=== PATIENT | male | born 1955 | race Caucasian/White ===

== ENCOUNTER → 2024-02-12 08:21 | Outpatient (REF) | payer BC, SELFPAY ==
[2024-02-12 09:15] LABS: % Basophils 1.3 % (0-2); % Eosinophils 2.9 % (0-6); % Immature Granulocytes 0.4 % (0-0.5); % Lymphocytes 41.3 % (20.5-51.1); % Monocytes 15.7 % (1.7-9.3); % Neutrophils 38.4 % (42.2-75.2); Absolute Basophils 0.1 10^3/uL (0-0.2); Absolute Eosinophils 0.2 10^3/uL (0-0.7); Absolute Lymphocytes 2.3 10^3/uL (1.2-3.4); Absolute Monocytes 0.9 10^3/uL (0.1-0.6); Absolute Neutrophils 2.1 10^3/uL (1.4-6.5); Hematocrit 47.1 % (39.0-52.0); Hemoglobin 17.1 g/dL (13.0-18.0); Mean Corp Hgb Conc. 36.3 g/dL (33.0-37.0); Mean Corpuscular Hgb 32.1 pg (27.0-31.0); Mean Corpuscular Volume 88.5 fL (80.0-94.0); Mean Platelet Volume 11.6 fL (7.4-10.4); Nucleated Red Blood Cells % 0 % (-); Platelet Count 233 10^3/uL (130-400); Red Blood Cell Count 5.32 10^6/uL (4.70-6.10); Red Cell Dist. Width 13.2 % (11.5-14.5); White Blood Cell Count 5.5 10^3/uL (4.8-10.8)
[2024-02-12 09:26] LABS: Urine Albumin Negative (Neg - Trace); Urine Bilirubin Negative (Negative); Urine Character Clear (Clear); Urine Color Yellow; Urine Glucose Negative (Negative); Urine Ketone Negative (Negative); Urine Leukocyte Negative (Negative); Urine Nitrite Negative (Negative); Urine Occult Blood Negative (Negative); Urine Urobilinogen Negative (Neg - 1+)
[2024-02-12 09:50] LABS: ALT (SGPT) 44 U/L (0-50); AST (SGOT) 35 U/L (17-59); Albumin 4.5 g/dl (3.5-5.0); Alkaline Phosphatase 67 U/L (38-126); Blood Urea Nitrogen 26 mg/dl (9-20); Carbon Dioxide 23 mmol/L (22-30); Chloride 104 mmol/L (98-107); Glucose 126 mg/dl (70-99); HDL Cholesterol 47 mg/dl; LDL Cholesterol, Calculated 77 mg/dl; Potassium 4.7 mmol/L (3.5-5.1); Sodium 135 mmol/L (135-145); Total Bilirubin 0.9 mg/dl (0.2-1.3); Total Cholesterol 145 mg/dl (50-199); Total Protein 7.2 g/dl (6.3-8.2); Triglyceride 105 mg/dl (10-149); Very Low Density Lipoprotein 21 mg/dl (0-30); eGFR > 60.00
[2024-02-12 10:08] LABS: PSA, Total - Screen 0.29 ng/ml (0.0-4.0); TSH 2.12 uIU/ml (0.47-4.68)
== END ==
LOC: REG 08:21
PROVIDERS: ATTENDING PHYSICIAN Internal Medicine
DX: R73.01 Impaired fasting glucose (principal); E78.2 Mixed hyperlipidemia; K86.89 Other specified diseases of pancreas; Z12.5 Encounter for screening for malignant neoplasm of prostate; N32.89 Other specified disorders of bladder
CPT/HCPCS: 36415; 80053; 80061; 81003; 83036; 84443; 85025; G0103

== ENCOUNTER 2024-02-16 13:38 | Emergency (ER) | payer BC, SELFPAY ==
[2024-02-16 14:04] VITALS: BP 146/74
--- NOTE | 2024-02-16 16:23 | ED.GENMED ---
History of Present Illness
General
Chief Complaint: Blood and Body Fluid Exposure
Source: patient
Exam Limitations: none
Time Seen by Provider: 02/16/24 16:14
History of Present Illness
History of Present Illness:
68-year-old male [employer] here presents after needlestick injury to right long finger he sustained today during a surgical case. He was helping the anesthesiologist perform a block and his right long finger was stuck with a needle. This was a 22-gauge
needle from what he thinks and he was able to express blood from the wound. Patient does have the identifying information for the source patient. No other complaints at this time
Phy Exam
Physical Exam
Physical Exam:
General: Well-appearing male no acute distress
Skin: Puncture wound volar aspect right long finger no surrounding erythema
Extremities: No cyanosis
Course
Orders/Labs/Results
Orders:
Orders
02/16/24 16:25
Pt has had a significant HIV exposure? Routine
HIV Exposure is significant?: Yes
02/16/24 16:37
HIV Combo Urgent
Hepatitis B Surface Antibody Urgent
Hepatitis B Surface Antigen Urgent
Hepatitis C Antibody Urgent
Vital Signs
Initial and Last Documented VS:
Initial Vital Signs
Temp Pulse Resp BP Pulse Ox
98.0 F 60 18 146/74 95
02/16/24 14:04 02/16/24 14:04 02/16/24 14:04 02/16/24 14:04 02/16/24 14:04
Last Documented Vital Signs
Temp Pulse Resp BP Pulse Ox
98.0 F 60 18 146/74 95
02/16/24 14:04 02/16/24 14:04 02/16/24 14:04 02/16/24 14:04 02/16/24 14:04
MDM/Problems Addressed
Differential Diagnosis Includes:
Needlestick injury right long finger. Exposure profile ordered and will be sent. This sounds like a low risk injury. Did contact admitting team of the source patient for their blood to be tested.
Had discussion with patient regarding option for postexposure prophylaxis. He wishes to wait until the source patient is tested and results are back to make his decision.
*Critical Care Note
Total Time (30-74mins, 75-104mins- exclusive of procedures): Not Applicable
ED Attending Note
-
Portions of this chart may have been created with voice recognition software.� Occasional wrong word or��sound alike� substitutions may have occurred due to the inherent limitations of voice recognition software.
Discharge Plan
Departure
Patient Disposition: Home (Routine Discharge)
Date of Disposition: 02/16/24
Time of Disposition: 17:07
Patient with high blood pressure during this ER visit?: No
Discharge Problem:
Needlestick injury accident
Instructions: Blood or body fluid exposure
Stand Alone Forms: Blood Body/Fluid Exposure
Activity Restrictions/Additional Instructions:
As discussed, we will hold off on postexposure prophylaxis until source patient's results are back.
Interventions
Interventions:
ED-Skin Assessment Last Done: 02/16/24 16:13
Discharge Date and Time
Print Language: DANISH
[2024-02-16 20:51] LABS: Hepatitis B Surface Antigen Negative (Negative)
[2024-02-16 21:00] LABS: HIV Combo Negative (Negative)
[2024-02-16 21:09] LABS: Hepatitis B Surface Antibody Positive; Hepatitis C Antibody Negative (Negative)
== END 2024-02-16 17:18 | disposition home or self-care (01) ==
LOC: EMR 13:38
PROVIDERS: Physician Assistant; EMERGENCY PHYSICIAN Student in an Organized Health Care Education/Training Program; FAMILY PHYSICIAN Internal Medicine
DX: Z77.21 Contact with and (suspected) exposure to potentially hazardous body fluids (principal); S61.232A Puncture wound without foreign body of right middle finger without damage to nail, initial encounter; W46.0XXA Contact with hypodermic needle, initial encounter; Y99.0 Civilian activity done for income or pay
CPT/HCPCS: 99283; 86706; 86803; 87340; 87389

== ENCOUNTER → 2024-03-29 14:26 | Outpatient (REF) | payer BC, SELFPAY | LOC: RAD 14:26 | PROVIDERS: ATTENDING PHYSICIAN Internal Medicine Interventional Cardiology; FAMILY PHYSICIAN Internal Medicine | DX: R07.89 Other chest pain (principal) | CPT/HCPCS: 71046 ==

== ENCOUNTER → 2024-05-06 08:15 | Outpatient (REF) | payer BC, SELFPAY ==
[2024-05-06 09:26] LABS: Blood Urea Nitrogen 28 mg/dl (9-20); Calcium 10.2 mg/dl (8.4-10.2); Carbon Dioxide 27 mmol/L (22-30); Chloride 105 mmol/L (98-107); Glucose 126 mg/dl (70-99); Potassium 4.8 mmol/L (3.5-5.1); Sodium 143 mmol/L (135-145); eGFR > 60.00
== END ==
LOC: REG 08:15
PROVIDERS: ATTENDING PHYSICIAN Internal Medicine Interventional Cardiology; FAMILY PHYSICIAN Internal Medicine
DX: I10 Essential (primary) hypertension (principal)
CPT/HCPCS: 36415; 80048

== ENCOUNTER → 2024-05-29 07:22 | Outpatient (REF) | payer BC, SELFPAY | LOC: HWRAD 07:22 | PROVIDERS: ATTENDING PHYSICIAN Surgery; FAMILY PHYSICIAN Internal Medicine | DX: K80.50 Calculus of bile duct without cholangitis or cholecystitis without obstruction (principal) | CPT/HCPCS: 76700 ==

== ENCOUNTER → 2024-08-26 09:44 | Outpatient (REF) | payer BC, SELFPAY ==
[2024-08-26 10:49] LABS: % Basophils 0.9 % (0-2); % Eosinophils 5.7 % (0-6); % Immature Granulocytes 0.2 % (0-0.5); % Lymphocytes 47.6 % (20.5-51.1); % Monocytes 9.6 % (1.7-9.3); Absolute Basophils 0.1 10^3/uL (0-0.2); Absolute Eosinophils 0.3 10^3/uL (0-0.7); Absolute Lymphocytes 2.7 10^3/uL (1.2-3.4); Absolute Monocytes 0.6 10^3/uL (0.1-0.6); Absolute Neutrophils 2.1 10^3/uL (1.4-6.5); Hemoglobin 16.9 g/dL (13.0-18.0); Mean Corp Hgb Conc. 33.8 g/dL (33.0-37.0); Mean Corpuscular Hgb 30.4 pg (27.0-31.0); Mean Corpuscular Volume 89.9 fL (80.0-94.0); Mean Platelet Volume 11.3 fL (7.4-10.4); Nucleated Red Blood Cells % 0 % (-); Platelet Count 234 10^3/uL (130-400); Red Blood Cell Count 5.56 10^6/uL (4.70-6.10); Red Cell Dist. Width 13.1 % (11.5-14.5); White Blood Cell Count 5.7 10^3/uL (4.8-10.8)
[2024-08-26 11:11] LABS: ALT (SGPT) 50 U/L (0-50); AST (SGOT) 32 U/L (17-59); Albumin 4.1 g/dl (3.5-5.0); Alkaline Phosphatase 62 U/L (38-126); Blood Urea Nitrogen 31 mg/dl (9-20); Carbon Dioxide 30 mmol/L (22-30); Chloride 102 mmol/L (98-107); Glucose 122 mg/dl (70-99); Glycohemoglobin (HgbA1c) 6.1 % (4.0-5.6); HDL Cholesterol 38 mg/dl; LDL Cholesterol, Calculated 63 mg/dl; Potassium 4.9 mmol/L (3.5-5.1); Sodium 138 mmol/L (135-145); Total Bilirubin 0.9 mg/dl (0.2-1.3); Total Cholesterol 125 mg/dl (50-199); Total Protein 6.9 g/dl (6.3-8.2); Triglyceride 121 mg/dl (10-149); Very Low Density Lipoprotein 24 mg/dl (0-30); eGFR > 60.00
[2024-08-26 11:17] LABS: Urine Albumin Negative (Neg - Trace); Urine Bilirubin Negative (Negative); Urine Character Clear (Clear); Urine Color Yellow; Urine Glucose Negative (Negative); Urine Ketone Negative (Negative); Urine Leukocyte Negative (Negative); Urine Nitrite Negative (Negative); Urine Occult Blood Negative (Negative); Urine Specific Gravity 1.025 (<1.030); Urine Urobilinogen Negative (Neg - 1+)
[2024-08-26 11:42] LABS: PSA, Total - Screen 0.24 ng/ml (0.0-4.0); TSH 1.57 uIU/ml (0.47-4.68)
== END ==
LOC: REG 09:44
PROVIDERS: ATTENDING PHYSICIAN Internal Medicine
DX: R73.01 Impaired fasting glucose (principal); E78.2 Mixed hyperlipidemia; K86.89 Other specified diseases of pancreas; Z12.5 Encounter for screening for malignant neoplasm of prostate; I10 Essential (primary) hypertension
CPT/HCPCS: 80053; 80061; 81003; 83036; 84443; 85025; G0103

== ENCOUNTER → 2025-01-18 07:41 | Outpatient (REF) | payer MEDICARE, OTHER, SELFPAY | LOC: MRI 07:41 | PROVIDERS: ATTENDING PHYSICIAN Internal Medicine Gastroenterology; FAMILY PHYSICIAN Internal Medicine | DX: K75.81 Nonalcoholic steatohepatitis (NASH) (principal); R16.0 Hepatomegaly, not elsewhere classified | CPT/HCPCS: 74183; 76391; A9575 ==